=== PATIENT | female | born 1975 | race Caucasian/White ===

== ENCOUNTER 2018-09-19 10:11 | Emergency (ER) | payer BC, OTHER ==
[~2018-09-19] VITALS: Ht 165.1 cm; Wt 102.0 kg
--- NOTE | 2018-09-19 11:10 | NUR ---
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
--- NOTE | 2018-09-19 11:37 | NUR ---
PT SEEN AT [facility] YESTERDAY DX'D W/ CHOLECYSTITIS. PCP W/ RENOWN. HAS APPT AT [facility] TOMORROW FOR X-RAY & U/S. STATES PT WORSENED AND "I CAME TO THE [facility]LOSE[facility] H[facility]". HAS CD DISCH W/ IMIAGING FROM [facility]. LAST ORAL INTAKE: 729 BREAKFAST. LAST BM: TODAY. LMP: August. VICODIN 5/325MG TWO TABS AT 2100 LAST NOC. PAIN CURRENTLY: PRESSURE, 8/10
[2018-09-19] MEDS ORDERED: LISI-167 PO (11:51)
[2018-09-19] MEDS ORDERED: MORPHINE SULFATE 4 MG/ML, 1ML ONE (11:58)
[2018-09-19] MEDS ORDERED: ONDANSETRON 2MG/ML, 2ML ONE (11:58)
[2018-09-19] MEDS ORDERED: FAMOTIDINE 20 MG/2 ML ONE (11:58)
[2018-09-19] MEDS ORDERED: ONDANSETRON 2MG/ML, 2ML IVPush ONE (12:00)
[2018-09-19] MEDS ORDERED: FAMOTIDINE 20 MG/2 ML IVP ONE (12:00)
[2018-09-19] MEDS ORDERED: MORPHINE SULFATE 4 MG/ML, 1ML IVPush PRN (12:00)
[2018-09-19] MEDS ORDERED: SODIUM CHLORIDE FLUSH 10ML SYR IVF ONE (12:00)
[2018-09-19 12:14] LABS: BASOPHILS # (AUTO) 0.08 x10^3/uL (0-0.1); BASOPHILS % (AUTO) 1 % (0-1); EOSINOPHILS # (AUTO) 0.59 x10^3/uL (0-0.4); EOSINOPHILS % (AUTO) 6 % (1-7); LYMPHOCYTES # (AUTO) 3.57 x10^3/uL (1-3.4); LYMPHOCYTES % (AUTO) 33 % (22-44); MD NO; MEAN CORPUSCULAR HEMOGLOBIN 33.6 pg (27.0-34.8); MEAN CORPUSCULAR VOLUME 98.9 fL (80-100); MONOCYTES # (AUTO) 0.73 x10^3/uL (0.2-0.8); MONOCYTES % (AUTO) 7 % (2-9); NEUTROPHILS # (AUTO) 5.79 x10^3/uL (1.8-6.8); NEUTROPHILS % (AUTO) 54 % (42-75); PLATELET COUNT 263 x10^3/uL (130-400); RED BLOOD COUNT 4.57 x10^6/uL (3.82-5.3); RED CELL DISTRIBUTION WIDTH 12.9 % (9.6-15.2)
--- NOTE | 2018-09-19 12:15 | NUR ---
VOIDED URINE SPECIMEN PROVIDED BY PT: CLOUDY, YELLOW
[2018-09-19 12:19] LABS: ALANINE AMINOTRANSFERASE 53 U/L (12-78); ALBUMIN 3.2 g/dL (3.4-5.0); ANION GAP 5 mmol/L (5-15); CALCIUM 8.9 mg/dL (8.5-10.1); CHLORIDE 106 mmol/L (98-107)
[2018-09-19 12:21] LABS: ALKALINE PHOSPHATASE 61 U/L (45-117); BILIRUBIN,TOTAL 0.4 mg/dL (0.2-1.0); TOTAL PROTEIN 6.9 g/dL (6.4-8.2)
--- NOTE | 2018-09-19 12:39 | NUR ---
LAY PEPCID, MORPHINE GIVEN PER EMAR. U/S NOW AT BS.
[2018-09-19 13:07] LABS: MICROSCOPIC AUTO
[2018-09-19 13:12] LABS: CULTURE INDICATED? YES
--- NOTE | 2018-09-19 13:18 | NUR ---
U/S STILL AT BS
--- NOTE | 2018-09-19 14:22 | NUR ---
PT RESTING ON [facility]. PT UPDATED ABOUT POC. BLANKET PROVIDED. COMFORTABLE WITH PAIN AT CURRENT LEVEL 04/10. NO REQUESTS AT THIS TIME.
[2018-09-19] MEDS ORDERED: CEFTRIAXONE PMX 1GM/50ML 50 ML ONE (15:13)
[2018-09-19] MEDS ORDERED: HYDROcodone/APAP 5/325 TABLET ONE (15:14)
[2018-09-19] MEDS ORDERED: KETOROLAC 30 MG/1 ML IVPush ONE (16:00)
[2018-09-19] MEDS ORDERED: HYDROcodone/APAP 5/325 TABLET PO ONE (16:00)
[2018-09-19] MEDS ORDERED: CEFTRIAXONE PMX 1GM/50ML 50 ML IV ONE (16:00)
[2018-09-19 16:07] VITALS: BP 148/100
--- NOTE | 2018-09-19 16:07 | NUR ---
RESTING QUIETLY ON BED W/ SIDE RAILS UP X2, CALL LIGHT W/IN REACH. CEFTRIAXONE INFUSING AT 100ML/HR VIA DIAL-AFLOW; IV SITE PATENT. TO STATES SHE CONTACTED SURGEON'S OFFICE; HAS AN APPT W/ HIM TOMORROW AFTERNOON.
== END 2018-09-19 16:33 | disposition home or self-care (01) ==
LOC: ED 12:15
DX: K80.20 Calculus of gallbladder without cholecystitis without obstruction (principal); N30.00 Acute cystitis without hematuria; I10 Essential (primary) hypertension; F17.200 Nicotine dependence, unspecified, uncomplicated
CPT/HCPCS: 36415; 76700; 80053; 81001; 83690; 85025; 87086; 96365; 96375; 99284; J0696; J2270; J2405; J3490